=== PATIENT | female | born 1970 | race African-American/Black ===

== ENCOUNTER 2023-03-29 12:46 | Day surgery (SDC) | payer BC ==
[2023-03-29] MEDS ORDERED: FERRIC CARBOXYMALTOSE 750 MG in SODIUM CHLORIDE 250 ML IVPB ONE (15:30)
[2023-03-29 20:53] VITALS: BP 151/111; PULSE 96; RESP 18; TEMP 98.1
== END 2023-03-29 16:55 | disposition home or self-care (01) ==
LOC: JONCNONCHE 12:46 → J7W 14:41 → JONCNONCHE 16:55
PROVIDERS: ATTEND Thoracic Surgery (Cardiothoracic Vascular Surgery)
PROC: 3E033GC Introduction of Other Therapeutic Substance into Peripheral Vein, Percutaneous Approach (ICD-10-PCS; principal; 2023-03-29)
DX: D50.9 Iron deficiency anemia, unspecified (principal)
CPT/HCPCS: 96365; J1439